=== PATIENT | male | born 1955 | race Caucasian/White ===

== ENCOUNTER 2018-07-17 21:21 | Emergency (ER) | payer BC, OTHER ==
[~2018-07-17 21:21] MED LIST: Iopamidol 370 76% 100 ML VIAL ONE
[2018-07-17] MEDS ORDERED: Ketorolac Tromethamine 30 MG/ML VIAL ONE (21:46)
[2018-07-17] MEDS ORDERED: Acetaminophen 500 MG TAB ONE (21:46)
[2018-07-17 22:14] LABS: #Basophils 0.1 thou/uL (0.0-0.2); #Eosinphils 0.1 thou/uL (0.0-0.7); #Lymphocytes 1.1 thou/uL (1.20-3.40); #Monocytes 1.1 thou/uL (0.11-0.59); #Neutrophils 9.4 thou/uL (1.40-6.50); %Basophils 0.5 % (0.0-1.0); %Lymphocytes 9.5 % (21.0-51.0); %Monocytes 9.6 % (0.0-10.0); %Neutrophils 79.4 % (42.0-75.0); Hemoglobin 13.8 g/dL (14.0-18.0); Mean Corpuscular HGB CONC 33.7 g/dL (32.0-36.0); Mean Corpuscular Hemoglobin 31.9 pg (27.0-31.0); Mean Corpuscular Volume 94.7 fL (78.0-98.0); Platelet Count 208 thou/uL (130-400); RBC Distribution Width 12.9 % (11.5-14.5); Red Blood Cell (RBC) Count 4.31 mill/uL (4.70-6.10); White Blood Cell (WBC) Count 11.8 thou/uL (4.8-10.8)
[2018-07-17 22:14] LABS: Clarity Clear (Clear)
[2018-07-17 22:15] LABS: Bilirubin Negative (Negative); Blood, Urine Negative (Negative); Glucose, Urine (Dipstick) Negative (Negative); Leukocyte Negative (Negative); Nitrite Negative (Negative); Protein, Urine (Dipstick) Negative (Neg-Trace); Specific Gravity, Urine 1.015 (1.005-1.030); Urobilinogen 0.2 mg/dL (0.2-1.0)
[2018-07-17 22:28] LABS: ALT (SGPT) 16 U/L (8-55); AST (SGOT) 28 U/L (5-34); Albumin 4.4 g/dL (3.4-4.8); Alkaline Phosphatase 84 U/L (40-150); Anion Gap 14 mmol/L (10-20); BUN (Urea Nitrogen) 15 mg/dL (8.4-25.7); Bilirubin, Total 0.5 mg/dL (0.2-1.2); Calc. Creatinine Clearance 0 mL/min (70-130); Calcium 9.8 mg/dL (7.8-10.44); Carbon Dioxide 25 mmol/L (23-31); Chloride 103 mmol/L (98-107); Estimated GFR-MDRD 88; Globulin 3.5 g/dL (2.4-3.5); Glucose 102 mg/dL (80-115); Potassium 4.3 mmol/L (3.5-5.1); Protein, Total 7.9 g/dL (5.8-8.1); Sodium 138 mmol/L (136-145)
[2018-07-17] MEDS ORDERED: AMOXicillin 250 MG CAP ONE (23:39)
[2018-07-17] MEDS ORDERED: Amoxicillin/Potassium Clav 875 MG TAB ONE (23:39)
--- NOTE | 2018-07-18 09:19 | CT ---
PRELIMINARY REPORT/[facility]/EMERGENCY AFTER HOURS PROCEDURE: EXAM: CT Neck With Contrast EXAM DATE/TIME: 07/17/2018 10:41 PM CLINICAL HISTORY: 62 years old, male; Pain; Neck pain; Patient HX: PT C/O of lt ear pain radiating into neck; Additiona l info: Phy concerned w/ mastoids as well TECHNIQUE: Imaging protocol: Axial computed tomography images of the neck with intravenous contrast. Coronal and sagittal reformatted images were created and reviewed. Radiation optimization: All CT scans at this facility use at least one of these dose optimization techniques: automated exposure control; mA and/o r kV adjustment per patient size (includes targeted exams where dose is matched to clinical indication); or iterative reconstruction. Contrast material: ISOVUE 370 Contrast volume: 96 ml Contrast route: RT FA COMPARISON: No relevant prior studies available. FINDINGS: Sinuses: Fluid levels in the ethmoid and sphenoid sinuses, compatible with sinusitis. Polyp versus retention cyst in left maxillary sinus. Nasopharynx: Normal. Oropharynx: Normal. No significant tonsillar enlargement. Hypopharynx: Normal. Larynx: Normal. Normal epiglottis. Retropharyngeal space: Normal. Submandibular/Parotid glands: Normal. Glands are normal in size. Thyroid: Normal. No enlarged or calcified nodules. Lymph nodes: Right paratracheal lymphadenopathy measuring 9 mm in short axis, indeterminate. Trachea: Visualized trachea is unremarkable. Lungs: Incompletely visualized 1.2 cm nodular opacity with central bronchial dilatation in the right lung apex. Vasculature: No acute findings. Auditory system: There is soft tissue thickening in the left middle ear cavity which may signify otit is media. Mastoid air cells: Near complete opacification of the mastoid air cells bilaterally. No perceptible m astoid fracture. No osseous erosion, overlying inflammation, or subperiosteal abscess to indicate mas toiditis. Bones/joints: See Mastoid Air Cells Finding. Soft tissues: Severe emphysema. IMPRESSION: 1. Near complete opacification of the mastoid air cells bilaterally. No perceptible mastoid fracture. No osseous erosion, overlying inflammation, or subperiosteal abscess to indicate mastoiditis. 2. There is soft tissue thickening in the left middle ear cavity which may signify otitis media. 3. Fluid levels in the ethmoid and sphenoid sinuses, compatible with sinusitis. 4. Polyp versus retention cyst in left maxillary sinus. 5. Incompletely visualized 1.2 cm nodular opacity with central bronchial dilatation in the right lung apex. This could be related to scarring. Neoplasm not excluded. Thank you for allowing us to participate in the care of your patient. Dictated and Authenticated by: Josue Donovan MD 07/17/2018 11:25 PM Central Time ([place] & [place]) FINAL REPORT CT NECK SOFT TISSUES WITH CONTRAST: Date: 07/17/[address] of the neck was done after injection of IV contrast for evaluation of fever and neck pain. I understand there is also left ear pain. Axial slices were acquired, followed by coronal and sagitta l reconstructions. FINDINGS: Mucosal thickening and fluid is seen in the sphenoid and ethmoid sinuses. The left side of the spheno id sinus is particular affected. There is a large retention cyst or polyp in the floor of the left ma xillary sinus. The right maxillary sinus and visible portions of the frontal sinuses are clear. The m astoid air cells are almost completely opacified bilaterally. In addition, there is some soft tissue thickening in the area of the left middle ear, best seen on the sagittal views. The patient's airways are patent. No sign of pharyngeal abscess or mass. Some small nodes are seen sc attered throughout the deep cervical chains, a little more so on the left than the right. No large no kiara of concern seen. The epiglottis appears normal. Slices into the lung apices show severe emphysematous changes. On the very last slice, one sees a 1.2 cm nodular density in the apex of the right upper lobe. It is seen incompletely, but does appear to have some small spiculations. It is difficult to characterize completely since it was not fully scann ed, however, the differential would lie between a small neoplasm versus an area of scarring. IMPRESSION: 1. Diffuse sinusitis involving the sphenoid, ethmoid, and left maxillary sinus. There is a retention cyst or polyp in the left maxillary sinus and possibly a small one in the medial right maxillary sin us. 2. Nearly complete opacification of the ethmoid air cells bilaterally. 3. Thickening of soft tissues in the left middle ear. Otitis is possible. 4. Incompletely visualized 1.2 cm nodular density with slight spiculations in the apex of the right upper lobe. The differential lies between scarring versus neoplasm. It might be well to obtain an francesca ctive CT of the thorax on the patient to visualize it better. My suspicion, however, is that after do ing so, we will be left with the same differential diagnosis. Report in agreement with preliminary reading by Yahaira. POS: HOME
--- NOTE | 2018-07-18 09:23 | RAD ---
CHEST 2 VIEWS: Date; 07/17/18 Comparison made with the 02/26/15 study. COPD is present as usual. No lobar infiltrate or effusion seen. There is scarring in the lung apices. Heart and mediastinum are unremarkable. Trachea is midline. IMPRESSION: COPD, but no acute findings. POS: HOME
== END 2018-07-17 23:49 | disposition home or self-care (01) ==
LOC: BURERS 21:21
DX: H66.92 Otitis media, unspecified, left ear (principal); R91.1 Solitary pulmonary nodule; J32.9 Chronic sinusitis, unspecified; F17.210 Nicotine dependence, cigarettes, uncomplicated
CPT/HCPCS: 36415; 70491; 71046; 80053; 81003; 83605; 84443; 85025; 87040; 87804; 94760; 96374; J1885; Q9967